=== PATIENT | male | born 1950 | race Caucasian/White ===

== ENCOUNTER → 2016-03-26 | Outpatient (CLI) | payer BC ==
[2016-03-26 17:57] LABS: ALT 82 U/L (21-72); AST 44 U/L (17-59); Alkaline Phosphatase 66 U/L (38-126); Anion Gap 13 mmol/L; Blood Urea Nitrogen 18 mg/dL (9-20); Calcium 9.7 mg/dL (8.4-10.2); Carbon Dioxide 25 mmol/L (22-30); Chloride 104 mmol/L (98-107); Glucose 90 mg/dL (74-99); Non-African American GFR(MDRD) >60 (>60 ml/min/1.73 sqM); Potassium 4.5 mmol/L (3.5-5.1); Sodium 142 mmol/L (137-145); Total Bilirubin 0.7 mg/dL (0.2-1.3); Total Protein 7.8 g/dL (6.3-8.2)
== END | disposition home or self-care (01) ==
LOC: LABWHC1 16:10
PROVIDERS: ATTEND Internal Medicine Interventional Cardiology
DX: I10 Essential (primary) hypertension (principal)
CPT/HCPCS: 36415; 80053

== ENCOUNTER → 2018-01-07 | Outpatient (CLI) | payer MEDICARE, OTHER ==
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
== END | disposition home or self-care (01) ==
LOC: RADCTMAIN 14:32
PROVIDERS: ATTEND Internal Medicine
DX: G44.321 Chronic post-traumatic headache, intractable (principal)
CPT/HCPCS: 70450

== ENCOUNTER → 2018-06-03 | Outpatient (CLI) | payer MEDICARE, OTHER ==
--- NOTE | 2018-06-03 08:06 | US ---
EXAMINATION TYPE: US abdomen complete DATE OF EXAM: 06/03/2018 COMPARISON: CT 2013 CLINICAL HISTORY: R94.5 Abn results liver function study. EXAM MEASUREMENTS: Liver Length: 13.7 cm Gallbladder Wall: 0.3 cm CBD: 0.6 cm Spleen: 17.2 cm Right Kidney: 12.0 x 4.5 x 5.3 cm Left Kidney: 11.6 x 4.1 x 4.9 cm Pancreas: not visualized due to midline bowel gas Liver: hypoechoic area anterior left lobe measures 1.8 x 1.0 x 1.8 cm. Gallbladder: No stones seen Evidence for sonographic Zarate's sign: No CBD: wnl Spleen: measures 17.2 cm Right Kidney: No hydronephrosis or masses seen Left Kidney: No hydronephrosis or masses seen Upper IVC: wnl Abd Aorta: proximal portion obscured by bowel gas The visualized liver is heterogeneously hyperechoic. Evaluation for focal masses is suboptimal due to the heterogeneity. The intrahepatic portion of the IVC and proximal abdominal aorta are within panchito l limits. There is no evidence of cholelithiasis. Common bile duct is unremarkable. The visualized portions of the pancreas are homogenous. The spleen is redemonstrated enlarged without focal spleni c mass or surrounding ascites. Kidneys are symmetric and free of hydronephrosis. No renal lesions a re seen. IMPRESSION: Stable splenomegaly since 2013. Redemonstration of diffuse fatty infiltration of liver. N o significant change from 2013 CT.
== END | disposition home or self-care (01) ==
LOC: RADUSWWP 07:23
PROVIDERS: ATTEND Internal Medicine
DX: K76.0 Fatty (change of) liver, not elsewhere classified (principal); R16.1 Splenomegaly, not elsewhere classified
CPT/HCPCS: 76700

== ENCOUNTER → 2020-10-09 | Outpatient (CLI) | payer MEDICARE, OTHER ==
--- NOTE | 2020-10-09 13:22 | NM ---
EXAMINATION TYPE: NM stress cardiolite complete DATE OF EXAM: 10/09/2020 COMPARISON: NONE HISTORY: Chest pain TECHNIQUE: After the intravenous administration of 9.5 mCi Tc 99m Sestamibi - Rest images obtained 4 5 minutes post injection. The patient exercised using a BRAYDEN protocol and 1 minute prior to peak e xercise was injected with 25.4 mCi Tc 99m Sestamibi - Stress images obtained 10 minutes post injectio n. FINDINGS: Targeted heart rate was achieved during performance of the study. Review of stress and rest SPECT moris ges demonstrates reduced uptake involving the inferior wall the myocardium. No definite stress-induce d reversible perfusion defects seen.. Gated analysis shows normal wall motion with an estimated left ventricular ejection fraction of 62 %. IMPRESSION: No scintigraphic evidence for reversible ischemia
--- NOTE | 2020-10-09 17:18 | EST ---
EXERCISE STRESS DATE OF SERVICE: INDICATION: Chest pain. AGE: 70 SEX: M HT: 6' WT: 180 lbs PROTOCOL: Cardiolite Stress STAGE: 4 DURATION OF EXERCISE: 11:00 HEART RATE REST: 78 BLOOD PRESSURE REST: 148/95 MAXIMUM HEART RATE ACHIEVED: 131 MAXIMUM BLOOD PRESSURE: 185/82 85% MPHR: 128 100% MPHR: 150 METS: 12.1 STRESS DATA: Heart rate 78, pressure is 148/95 mmHg. Baseline EKG showed sinus mechanism. The patient exercised on the treadmill according to Pj protocol for a total of 11 minutes and achieved 12.1 METS. Max heart rate was 131, which is about 87% of maximum predicted heart rate and maximum blood pressure was 185/82 mmHg. Clinically, the patient did not have any symptoms of chest pain or chest discomfort and the EKG did not show any significant ST or T-wave abnormalities concerning for ischemia. CONCLUSION: 1. Excellent exercise tolerance. 2. Normal EKG in response to exercise. 3. Please follow up on the Cardiolite portion on a separate report from Radiology department. MMODL / IJN: [id number] /
== END | disposition home or self-care (01) ==
LOC: RADNMMAIN 08:25
PROVIDERS: ATTEND Internal Medicine
DX: R07.9 Chest pain, unspecified (principal)
CPT/HCPCS: 93017; 78452; A9500

== ENCOUNTER → 2021-12-01 | Outpatient (CLI) | payer MEDICARE, OTHER ==
--- NOTE | 2021-12-01 18:26 | US ---
EXAMINATION TYPE: US carotid duplex BILAT DATE OF EXAM: 12/01/2021 COMPARISON: NONE CLINICAL HISTORY: 71-year-old male I65.23 occlusion and stenosis. Carotid stenosis per order. TECHNIQUE: Carotid duplex ultrasound examination. Indirect Doppler criteria was utilized. FINDINGS: EXAM MEASUREMENTS: RIGHT: Peak Systolic Velocity (PSV) cm/sec ----- Right CCA: 97.5 ----- Right ICA: 83.9 ----- Right ECA: 114 ICA/CCA ratio: 0.86 RIGHT: End Diastole cm/sec ----- Right CCA: 16.2 ----- Right ICA: 25.0 ----- Right ECA: 15.5 LEFT: Peak Systolic Velocity (PSV) cm/sec ----- Left CCA: 108 ----- Left ICA: 87.0 ----- Left ECA: 143 ICA/CCA ratio: 0.81 LEFT: End Diastole cm/sec ----- Left CCA: 25.5 ----- Left ICA: 34.9 ----- Left ECA: 24.3 VERTEBRALS (direction of flow): Right Vertebral: Antegrade Left Vertebral: Antegrade Rhythm: Normal TRIM ATTACHER NOTES: Minimal intimal thickening seen bilaterally. No elevated velocities at this time. IMPRESSION: No hemodynamically significant internal carotid artery stenosis on either side. Criteria for Assigning % of Stenosis / Diameter reduction (Estimation based on the indirect measurements of the internal carotid artery velocities (ICA PSV). 1. Normal (no stenosis)=ICA PSV < 125 cm/s: ratio < 2.0: ICA EDV<40 cm/s. 2. Less than 50% stenosis=ICA PSV < 125 cm/s: ratio < 2.0: ICA EDV<40 cm/s. 3. 50 to 69% stenosis=ICA PSV of 125 to 230 cm/s: ration 2.0 ? 4.0: ICA EDV 40-100 cm/s. 4. Greater than 70% stenosis to near occlusion= ICA PSV > 230 cm/s: ratio > 4.0: ICA EDV > 100 cm/s. 5. Near occlusion= ICA PSV velocities may be low or undetectable: variable ratio and ICA EDV. 6. Total occlusion=unable to detect flow.
== END | disposition home or self-care (01) ==
LOC: RADUSWWP 14:11
PROVIDERS: ATTEND Internal Medicine
DX: I65.23 Occlusion and stenosis of bilateral carotid arteries (principal)
CPT/HCPCS: 93880

== ENCOUNTER 2023-03-02 07:00 | Day surgery (SDC) | payer MEDICARE, OTHER ==
[~2023-03-02 07:00] MED LIST: LACTATED RINGERS 1,000 ML IV SCH; LIDOCAINE 1% (10MG/ML) FOR IV START INTRADERMA PRN
[2023-03-02 07:30] VITALS: TEMP 97.9
[2023-03-02] MEDS ORDERED: PROPOFOL 10 MG/ML 20 ML VIAL IV ONE (08:05)
[2023-03-02] MEDS ORDERED: LIDOCAINE 1% INJ 10MG/ML (20 ML MDV) ONE (08:05)
--- NOTE | 2023-03-02 08:14 | P.GSHP ---
History of Present Illness H&P Date: 03/02/23 Chief Complaint: GERD, screening 73-year-old male here for upper and lower endoscopy. Patient with history of chronic reflux. Takes Nexium daily. Patient also has a history of colon polyps. Family history of colon polyps. Past Medical History Past Medical History: Blood Disorder, Cancer, GERD/Reflux Additional Past Medical History / Comment(s): blood condition polycythymia, History of Any Multi-Drug Resistant Organisms: None Reported Past Surgical History: Hernia Repair Past Anesthesia/Blood Transfusion Reactions: No Reported Reaction Smoking Status: Never smoker Medications and Allergies Home Medications Medication Instructions Recorded Confirmed Type Aspirin [Adult Low Dose Aspirin EC] 81 mg PO DAILY 02/24/23 02/24/23 History Nexium(Unk) 1 tab PO DAILY 02/24/23 02/24/23 History Pegasus(Unk) 1 injection INJ WEEKLY 02/24/23 02/24/23 History Vit C(Unk) 1 tab PO DAILY 02/24/23 02/24/23 History Allergies Allergy/AdvReac Type Severity Reaction Status Date / Time No Known Allergies Allergy Verified 03/02/23 07:14 Surgical - Exam Vital Signs Temp Pulse Resp BP Pulse Ox 97.9 F 89 20 136/72 98 03/02/23 07:17 03/02/23 07:17 03/02/23 07:17 03/02/23 07:17 03/02/23 07:17 Physical exam: General: Well-developed, well-nourished HEENT: Normocephalic, sclerae nonicteric Abdomen: Nontender, nondistended Extremities: No edema Neuro: Alert and oriented Assessment and Plan (1) Colon cancer screening Narrative/Plan: Proceed with upper and lower endoscopy at this time. Current Visit: Yes Status: Acute Code(s): Z12.11 - ENCOUNTER FOR SCREENING FOR MALIGNANT NEOPLASM OF COLON SNOMED Code(s): 126593316
--- NOTE | 2023-03-02 08:30 | P.PCN ---
Date of Procedure: 03/02/23 Procedure(s) Performed: PREOPERATIVE DIAGNOSIS: GERD, screening POSTOPERATIVE DIAGNOSIS: Mild gastritis, mild diverticulosis PROCEDURE: 1. EGD with biopsy 2. Colonoscopy ANESTHESIA: MAC SURGEON: Paul Rosenberg M.D. SPECIMENS: Antrum ENDOSCOPIC PROCEDURE: The patient was on the endoscopy table in the left decubitus position. The Olympus gastroscope was inserted into the oropharynx and passed under direct visualization to the region of the third portion of the duodenum. From that point the scope was slowly withdrawn inspecting all surfaces carefully. There were no neoplastic inflammatory or polypoid lesions throughout the duodenum. The pylorus was widely patent. The stomach was carefully inspected. There was mild gastritis present. A biopsy of the antrum took place to rule out H. pylori. Retroflexion revealed a normal hiatus. The esophagus was then carefully examined. There were no neoplastic inflammatory or polypoid lesions throughout the visualized esophagus. The patient was kept on the endoscopy table in the left decubitus position. The Olympus colonoscope was inserted into the anus and passed under direct visualization to the base of the cecum. The appendiceal orifice was visualized. From that point the scope was slowly withdrawn inspecting all surfaces carefully. There were no neoplastic inflammatory or polypoid lesions throughout the cecum, ascending, transverse, descending, sigmoid and rectum. There was scattered left-sided diverticulosis noted. Digital rectal examination was normal. The patient was taken to the recovery room in stable condition per anesthesia guidelines. RECOMMENDATIONS: Resume diet. Continue antiacids. Follow-up colonoscopy EGD 5- 7 years given history of polyps.
[2023-03-02 08:45] VITALS: RESP 16
[2023-03-02 09:11] VITALS: BP 131/78; PULSE 78
== END 2023-03-02 09:12 | disposition home or self-care (01) ==
LOC: ORWHC2ENDO 07:00
PROVIDERS: ATTEND Surgery
DX: Z12.11 Encounter for screening for malignant neoplasm of colon (principal); K29.50 Unspecified chronic gastritis without bleeding; K57.30 Diverticulosis of large intestine without perforation or abscess without bleeding; K21.9 Gastro-esophageal reflux disease without esophagitis; F17.200 Nicotine dependence, unspecified, uncomplicated; Z86.010 Personal history of colon polyps; Z80.0 Family history of malignant neoplasm of digestive organs; Z79.82 Long term (current) use of aspirin; Z79.899 Other long term (current) drug therapy
CPT/HCPCS: 88305; 43239; J2001; J2704; G0105; 45378

== ENCOUNTER → 2023-06-29 | Outpatient (CLI) | payer MEDICARE, OTHER ==
--- NOTE | 2023-06-29 23:15 | US ---
EXAMINATION TYPE: US scrotum with doppler. Grayscale and color Doppler Duplex imaging performed of t thomas scrotum. DATE OF EXAM: 06/29/2023 COMPARISON: NONE CLINICAL INDICATION: Male, 73 years old with history of R36.1 BLOODY EJACULATI; Bleeding from penis x 1 year EXAM MEASUREMENTS: TESTICLES: Right Testicle: 5.9 x 2.9 x 4.5 cm Left Testicle: 5.6 x 3.7 x 3.4 cm EPIDIDYMIS HEAD: Right Epididymis: 0.8 x 1.3 x 1.0 cm Left Epididymis: 0.8 x 1.2 x 1.4 cm Doppler performed to assess for testicular vascularity; good bilateral color flow and waveforms are s een. There is no evidence of testicular torsion. Presence of hydroceles: Left Presence of varicoceles: No Heterogenous left epididymus body IMPRESSION: 1. Mild left hydrocele may be present.
--- NOTE | 2023-06-29 23:18 | US ---
EXAMINATION TYPE: US carotid duplex BILAT DATE OF EXAM: 06/29/2023 COMPARISON: US 12/01/2021 CLINICAL INDICATION: Male, 73 years old with history of I65.23 SRINIVAS CAROTID STENOSIS; TECHNIQUE: Carotid duplex ultrasound examination. Indirect Doppler criteria was utilized. FINDINGS: EXAM MEASUREMENTS: RIGHT: Peak Systolic Velocity (PSV) cm/sec ----- Right CCA: 61 ----- Right ICA: 85 ----- Right ECA: 107 ICA/CCA ratio: 1.4 RIGHT: End Diastole cm/sec ----- Right CCA: 13 ----- Right ICA: 22 ----- Right ECA: 11 LEFT: Peak Systolic Velocity (PSV) cm/sec ----- Left CCA: 74 ----- Left ICA: 67 ----- Left ECA: 94 ICA/CCA ratio: 0.9 LEFT: End Diastole cm/sec ----- Left CCA: 14 ----- Left ICA: 21 ----- Left ECA: 12 VERTEBRALS (direction of flow): Right Vertebral: Antegrade Left Vertebral: Antegrade Rhythm: Normal TWISTING PRESS OPERATOR NOTES: No elevated velocities or plaque noted. May be some mild intimal thickening. IMPRESSION: 1. No significant flow-limiting stenosis based on velocities. Criteria for Assigning % of Stenosis / Diameter reduction (Estimation based on the indirect measurements of the internal carotid artery velocities (ICA PSV). 1. Normal (no stenosis)=ICA PSV < 125 cm/s: ratio < 2.0: ICA EDV<40 cm/s. 2. Less than 50% stenosis=ICA PSV < 125 cm/s: ratio < 2.0: ICA EDV<40 cm/s. 3. 50 to 69% stenosis=ICA PSV of 125 to 230 cm/s: ration 2.0 ? 4.0: ICA EDV 40-100 cm/s. 4. Greater than 70% stenosis to near occlusion= ICA PSV > 230 cm/s: ratio > 4.0: ICA EDV > 100 cm/s. 5. Near occlusion= ICA PSV velocities may be low or undetectable: variable ratio and ICA EDV. 6. Total occlusion=unable to detect flow.
== END | disposition home or self-care (01) ==
LOC: RADUSWWP 13:35
PROVIDERS: ATTEND Internal Medicine
DX: I65.23 Occlusion and stenosis of bilateral carotid arteries (principal); R36.1 Hematospermia
CPT/HCPCS: 76870; 93880; 93975